=== PATIENT | male | born 1955 | race African-American/Black ===

== ENCOUNTER 2017-05-31 12:36 | Inpatient (IN) | payer MEDICARE, OTHER ==
[~2017-05-31] VITALS: Ht 188 cm; Wt 91.6 kg
--- NOTE | ~2017-05-31 | PN ---
Unit #: [id number] #: [id number] Patient: MARKEL MCCLOUD [id number] [facility] [address] [place] [address] [id number] MR#: [id number] NAME: MARKEL MCCLOUD. ROOM: P253 Age: 61 Sex: M Admission Date: 05/31/2017 : 1955 Attending Physician: Matthew Camacho M.D. Admitting Physician: Matthew Camacho M.D. Primary Care Physician: Inga Doctor Not In System [facility] PROGRESS NOTES DATE 06/05/2017 DISCUSSION Mr. Mccloud is a 61-year-old male who was seen today and chart was reviewed and case was discussed with the staff. He has been anxious, withdrawn and rather seclusive to himself and staff reports that he has been tearful and depressed. Patient was persistent depressive symptoms as well as maintaining anxiety. He has been taking the medications and tolerating them fairly well with no reported side effects. MENTAL STATUS EXAMINATION Middle-aged male who was casually dressed with fair personal hygiene and appears to be in no acute distress or discomfort. He was awake and alert with impaired attention and concentration. His mood was anxious with congruent affect. His speech is slow and restricted in content. He denies any suicidal or homicidal ideations. His insight and judgement remains slightly impaired. TREATMENT PLAN 1. Will continue on his current medications and treatment protocol. Will monitor his response to medications and make further adjustments as needed. 2. Will continue to follow up. Dictated by... Kathie Alejo/annalise TD: 06/05/2017 16:32 JOB #: [id number] Unit #: [id number] #: [id number] Patient: AMRKEL MCCLOUD [facility] PROGRESS NOTES Page 1 of 1 X Matthew Camacho MD PROGRESS NOTE
--- NOTE | ~2017-05-31 | DS ---
Unit #: [id number] #: [id number] Patient: MARKEL MCCLOUD [id number] [facility] [address] [place] [address] [id number] I MR#: [id number] NAME: MARKEL MCCLOUD. ROOM: P253 Age: 61 Sex: M Admission Date: 05/31/2017 : 1955 Discharge Date: 06/10/2017 Attending Physician: Matthew Camacho M.D. Primary Care Physician: Generic Doctor Not In System DISCHARGE SUMMARY IDENTIFICATION DATA Mr. Mccloud is a 61-year-old male who is a resident of [place], [place], and was self-referred to the hospital on voluntary basis. DISCHARGE DIAGNOSES PSYCHIATRIC: Major depressive disorder, recurrent, moderate, without psychotic features. Cocaine dependence, moderate. MEDICAL: Epilepsy. Hypertension. Sleep apnea. Diabetes mellitus. STRESSORS: Mild psychosocial stressors. HISTORY OF PRESENT ILLNESS Same as in initial psychiatric evaluation. PAST PSYCHIATRIC HISTORY Same as in initial psychiatric evaluation. PAST MEDICAL HISTORY Same as in initial psychiatric evaluation. HOSPITAL COURSE The patient was admitted to the adult chemical dependency and psychiatric unit at [facility] kylah Garcia and was oriented to the hospital environment. Routine p.r.n. medications were initiated, and he was started back on his home medications. Medications were adjusted, and he was closely monitored. He was having some repeat episodes of seizures, and Neurontin was maintained, and it was gradually titrated up. Meanwhile, he was polite and pleasant, and cooperative with treatment recommendations and was constantly complaining of persistent depressive symptoms. Medications, therefore, were adjusted quite regularly, and once the patient started showing therapeutic response, he was denying any further suicidal ideations, intent, or plan. As such, it was decided that she will be discharged home. We will continue treatment on outpatient basis. DISCHARGE MEDICATIONS 1. Seroquel 100 mg at bedtime for depression. 2. Effexor XR 75 mg twice a day for depression. 3. BuSpar 10 mg twice a day for anxiety. 4. Neurontin 600 mg 3 times a day for seizure disorder. Unit #: [id number] #: [id number] Patient: MARKEL MCCLOUD CONDITION AT DISCHARGE Stable. PROGNOSIS Fair. Dictated by... Kathie Alejo/tori TD: 06/13/2017 09:41 JOB #: [id number] DISCHARGE SUMMARY Page 1 of 1 X Matthew Camacho MD DISCHARGE SUMMARY
--- NOTE | ~2017-05-31 | DS ---
Unit #: [id number] #: [id number] Patient: MARKEL MCCLOUD [id number] [facility] [address] [place] [address] [id number] I MR#: [id number] NAME: MARKEL MCCLOUD ROOM: P253 Age: 61 Sex: M Admission Date: 05/31/2017 : 1955 Discharge Date: 06/12/2017 Attending Physician: Matthew Camacho M.D. Primary Care Physician: Generic Doctor Not In System DISCHARGE SUMMARY ADDENDUM Mr. Mccloud was scheduled to be discharged on 06/10/2017; however, he stated that he was not ready and was having suicidal thoughts and as such, discharge planning was canceled and he was maintained on a suicide watch until he started feeling better; at which point, it was decided that he will be discharged home and will continue treatment on an outpatient basis. DISCHARGE CONDITION Stable. PROGNOSIS Fair. Dictated by... Kathie Alejo/dante TD: 06/12/2017 16:28 JOB #: [id number] DISCHARGE SUMMARY Page 1 of 1 X Matthew Camacho MD X DISCHARGE SUMMARY
--- NOTE | ~2017-05-31 | PN ---
Unit #: [id number] #: [id number] Patient: MARKEL MCCLOUD [id number] [facility] [address] [place] [address] [id number] I MR#: [id number] NAME: MARKEL MCCLOUD ROOM: P253 Age: 61 Sex: M Admission Date: 05/31/2017 : 1955 Attending Physician: Matthew Camacho M.D. Admitting Physician: Matthew Camacho M.D. Primary Care Physician: Generic Doctor Not In System [facility] PROGRESS NOTES DATE OF SERVICE 06/02/2017 DISCUSSION Mr. Mccloud is a 61-year-old male who was seen today. Chart was reviewed and case was discussed with the staff. He has been anxious, withdrawn, and rather seclusive to himself. His drug screen has come back to be positive for cocaine. Meanwhile, he has been taking the medications and tolerating them fairly well with no reported side effects. MENTAL STATUS EXAMINATION Middle-aged male who is casually dressed with fair personal hygiene, appears to be in no acute distress or discomfort. The patient was awake and alert on interaction with intact orientation. His mood is anxious with congruent affect. He denies any suicidal or homicidal ideations. His insight and judgment remain slightly impaired. TREATMENT PLAN We will continue him on his current medications and treatment protocol. We will monitor his response and make further adjustments as needed. Dictated by... Kathie Alejo/miguelitog TD: 06/04/2017 11:05 JOB #: [id number] [facility] PROGRESS NOTES Page 1 of 1 X Matthew Camacho MD PROGRESS NOTE
--- NOTE | ~2017-05-31 | PN ---
Unit #: [id number] #: [id number] Patient: MARKEL MCCLOUD [id number] [facility] [address] [place] [address] [id number] I MR#: [id number] NAME: MARKEL MCCLOUD ROOM: P253 Age: 61 Sex: M Admission Date: 05/31/2017 : 1955 Attending Physician: Matthew Camacho M.D. Admitting Physician: Matthew Camacho M.D. Primary Care Physician: Generic Doctor Not In System [facility] PROGRESS NOTES DATE OF SERVICE 06/09/2017 DISCUSSION Mr. Mccloud is a 61-year-old white male who was seen today and chart was reviewed and case was discussed with the staff. He has been anxious, withdrawn and rather seclusive to himself. Meanwhile, he has been cooperative with the treatment recommendations. He has been taking the medication and tolerating them fairly well with no reported side effects. MENTAL STATUS EXAM Middle-aged male who was casually dressed with fair personal hygiene, appears to be in no acute distress or discomfort. He was awake and alert with impaired attention and concentration. His mood was anxious with congruent affect. His speech was slow and restricted in content. His insight and judgement remains slightly impaired. TREATMENT PLAN 1. We will continue him on his current medications and treatment protocol. We will monitor his response to the medication and make further adjustments as needed. 2. We will continue to follow up. Dictated by... Kathie Alejo/everardo TD: 06/11/2017 02:39 JOB #: [id number] [facility] PROGRESS NOTES Page 1 of 1 X Matthew Camacho MD PROGRESS NOTE
--- NOTE | ~2017-05-31 | PN ---
Unit #: [id number] #: [id number] Patient: MARKEL MCCLOUD [id number] [facility] [address] [place] [address] [id number] I MR#: [id number] NAME: MARKEL MCCLOUD ROOM: P253 Age: 61 Sex: M Admission Date: 05/31/2017 : 1955 Attending Physician: Matthew Camacho M.D. Admitting Physician: Matthew Camacho M.D. Primary Care Physician: Generic Doctor Not In System [facility] PROGRESS NOTES DATE OF SERVICE: 06/08/2017 SUBJECTIVE Mr. Mccloud is a 61-year-old male, who was seen today and chart was reviewed, and case was discussed with the staff. He has been anxious, withdrawn, and rather seclusive to himself. Meanwhile, he has been cooperative with treatment recommendation and has been taking medications and tolerating them fairly well with no reported side effects. MENTAL STATUS EXAMINATION Middle-aged male, who was casually dressed with fair personal hygiene and appears to be in no acute distress or discomfort. He was awake and alert on interaction with intact orientation. His mood was anxious with a congruent affect. He denies any suicidal or homicidal ideations. His insight and judgment remain slightly impaired. TREATMENT PLAN 1. We will continue him on his current treatment protocol. We will monitor his response to the medications and make further adjustments as needed. 2. We will continue to follow up. Dictated by... Kathie Alejo/dante TD: 06/11/2017 00:54 JOB #: [id number] [facility] PROGRESS NOTES Page 1 of 1 X Matthew Camacho MD X PROGRESS NOTE
--- NOTE | ~2017-05-31 | PN ---
Unit #: [id number] #: [id number] Patient: MARKEL MCCLOUD [id number] [facility] [address] [place] [address] [id number] I MR#: [id number] NAME: MARKEL MCCLOUD. ROOM: P253 Age: 61 Sex: M Admission Date: 05/31/2017 : 1955 Attending Physician: Matthew Camacho M.D. Admitting Physician: Matthew Camacho M.D. Primary Care Physician: Generic Doctor Not In System [facility] PROGRESS NOTES DATE OF SERVICE: 06/03/2017 SUBJECTIVE Mr. Mccloud is a 61-year-old male who was seen today and chart was reviewed, and case was discussed with the staff. The patient has been anxious, withdrawn, details and rather seclusive to himself and reports persistent depressive symptoms and feelings of hopelessness and suicidal ideation. He has been taking medications and tolerating them fairly well with no reported side effects. MENTAL STATUS EXAMINATION Middle-aged male who was casually dressed with fair personal hygiene, appears to be in no acute distress or discomfort. He was awake and alert on interaction with intact orientation. His mood was anxious and depressed with a congruent affect. He reports having suicidal ideation, but denies any homicidal ideation. His insight and judgment remain slightly impaired. TREATMENT PLAN 1. We will continue on his current medications and treatment protocol. We will monitor his response to medications and make further adjustments as needed. 2. We will continue to follow up. Dictated by... Kathie Alejo/dante TD: 06/05/2017 03:16 JOB #: [id number] Unit #: [id number] #: [id number] Patient: MARKEL MCCLOUD [facility] PROGRESS NOTES Page 1 of 1 X Matthew Camacho MD PROGRESS NOTE
--- NOTE | ~2017-05-31 | CO ---
Unit #: [id number] #: [id number] Patient: MARKEL MCCLOUD [id number] [facility] [address] [place] [address] [id number] I MR#: [id number] NAME: MARKEL MCCLOUD. ROOM: P253 Age: 61 Sex: M Admission Date: 05/31/2017 : 1955 Attending Physician: Matthew Camacho M.D. Primary Care Physician: Inga Doctor Not In System Consultation Date: 06/03/2017 CONSULTATION REPORT Ordering provider is Dr. Camacho. REASON FOR CONSULTATION Seizures. SUBJECTIVE The patient reports that he started having seizures approximately 1 year ago. When he first started having them, he was hospitalized at [facility]. He was started on Keppra and Dilantin, but had bad side effects and still had seizures with the medication. He reports that he has had several seizures since being admitted to [facility]. He has no auras, but he gets a bad taste in his mouth prior to seizure occurring. He has not seen a neurologist and has not seen a primary care doctor in several months. However, he does have an appointment on the 06/25/2017. OBJECTIVE His examination is unremarkable. Vital signs are stable. Per nursing, he has had a couple of mild grand mal seizures in which his eyes water and he is not conscious from what they have seen. He has not lost control of bowel or bladder function, and when he awakens, he is not truly postictal. ASSESSMENT Seizures. PLAN We will start the patient on Topamax, however, he does need to see Neurology as soon as possible. 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 It is suspicious. Dictated by... Kenneth Nunez/mathieul TD: 06/04/2017 13:02 JOB #: [id number] Unit #: [id number] #: [id number] Patient: MARKEL MCCLOUD CONSULTATION REPORT Page 1 of 1 X CHRISTINA CHARLTON APRN CONSULTATION REPORT
--- NOTE | ~2017-05-31 | PA ---
Unit #: [id number] #: [id number] Patient: MARKEL MCCLOUD [id number] [facility] [address] [place] [address] [id number] I MR#: [id number] NAME: MARKEL MCCLOUD ROOM: P253 Age: 61 Sex: M Admission Date: 05/31/2017 : 1955 Date of Assessment: 05/31/2017 Attending Physician: Matthew Camacho M.D. Admitting Physician: Matthew Camacho M.D. Primary Care Physician: Generic Doctor Not In System PSYCHIATRIC ASSESSMENT DATE OF SERVICE 05/31/2017. IDENTIFYING DATA Mr. Mccloud is a 61-year-old single male, who is a resident of [place], [place], and was self-referred to the hospital on a voluntary basis. CHIEF COMPLAINT "I actually called the first part of the week, I know that I had depression." HISTORY OF PRESENT ILLNESS Mr. Mccloud is a 61-year-old male with history of mood disorder, who came to the hospital stating that he has been struggling with worsening depression, "but I'm at the point now that I don't want to leave the house that I stay in the bed and just I'm having some thoughts that shouldn't be having and today was especially bad and I don't know if it was the rain, but I decided to call 911 and they brought me in. I have a tendency to worry about some things and causing him to get depressed." The patient does report suicidal ideation with plan to overdose on medication and as such, recommendation for inpatient level of care for safety and stabilization was made. The patient was stepped up to the inpatient unit. SUBSTANCE ABUSE HISTORY The patient reports history of alcohol, cannabis, and cocaine abuse, but reports that he has not used drugs in a long time, though he states that he recently used cocaine 40 dollars worth a day before coming to the hospital. PAST PSYCHIATRIC HISTORY The patient has had history of inpatient psychiatric hospitalization at couple of different facilities and review of the medical records indicate currently he is not active in any treatment program, is not seeing a psychiatrist, and is not taking any psychotropic medications. PAST MEDICAL HISTORY The patient's medical history is significant for hypertension, epilepsy, sleep apnea, diabetes mellitus. ALLERGIES No known medication allergies. Unit #: [id number] #: [id number] Patient: MARKEL MCCLOUD PERSONAL AND SOCIAL HISTORY A 61-year-old male, who reports that he is single, unemployed, and lives alone and has poor social support system. MENTAL STATUS EXAMINATION Middle-aged male who was casually dressed with fair personal hygiene, appears to be in no acute distress or discomfort. He was awake and alert on interaction with intact orientation. His mood was anxious and depressed with a congruent affect. His speech was slow and restricted in content. He reports having suicidal ideations, but denies any homicidal ideations, and also denies any auditory or visual hallucinations. His insight and judgment remain significantly impaired. DIAGNOSTIC IMPRESSION Psychiatric: Major depressive disorder, recurrent, moderate, without psychotic features. Medical: Epilepsy, hypertension, sleep apnea, diabetes mellitus. Stressors: Moderate psychosocial stressors. TREATMENT PLAN 1. The patient has presented with a history of mood disorder, and has been decompensating and will need inpatient hospitalization for safety and stabilization. We will start him back on his home medications. We will adjust the medications and monitor response. 2. Supportive therapy was provided to the patient. 3. Safe, structured, and nourishing environment will be provided. ESTIMATED LENGTH OF STAY 5 to 7 days. ABILITY TO HELP SELF Limited. WILLINGNESS TO HELP SELF The patient appears to be willing to help self. STRENGTHS 1. Communicative. 2. Cooperative. PROBLEMS 1. Chronic dysphoric symptoms. 2. Poor social support system. DISCHARGE CRITERIA This will be contingent upon the patient's ability to show resolution of his depression and anxiety and his ability to stay safe to himself, particularly after discharge from the hospital. Dictated by... Kathie Alejo/dante TD: 06/02/2017 03:24 JOB #: [id number] Unit #: [id number] #: [id number] Patient: MARKEL MCCLOUD PSYCHIATRIC ASSESSMENT Page 1 of 1 X Matthew Camacho MD PSYCHIATRIC ASSESSMENT
--- NOTE | ~2017-05-31 | PN ---
Unit #: [id number] #: [id number] Patient: MARKEL MCCLOUD [id number] [facility] [address] [place] [address] [id number] I MR#: [id number] NAME: MARKEL MCCLOUD. ROOM: P253 Age: 61 Sex: M Admission Date: 05/31/2017 : 1955 Attending Physician: Matthew Camacho M.D. Admitting Physician: Matthew Camacho M.D. Primary Care Physician: Generic Doctor Not In System [facility] PROGRESS NOTES DATE 06/07/2017 DISCUSSION Mr. Mccloud is a 61-year-old male who was seen today and chart was reviewed and case was discussed with the staff. He has been anxious, withdrawn and seclusive to himself. He reports persistent depressive symptoms. Meanwhile, he has been taking the medications and tolerating them fairly well with no reported side effects. MENTAL STATUS EXAMINATION Middle-aged male who was casually dressed with fair personal hygiene and appears to be in no acute distress or discomfort. He was awake and alert on interaction with intact orientation. His mood was anxious with congruent affect. His speech is slow and goal-directed. He denies any suicidal or homicidal ideations. His insight and judgement remains slightly impaired. TREATMENT PLAN 1. Will continue on his current medications and treatment protocol. Will monitor response to the medications and make further adjustments as needed. 2. Will continue to follow up. Dictated by... Kathie Alejo/annalise TD: 06/07/2017 20:45 JOB #: [id number] Unit #: [id number] #: [id number] Patient: MARKEL MCCLOUD [facility] PROGRESS NOTES Page 1 of 1 X Matthew Camacho MD PROGRESS NOTE
--- NOTE | ~2017-05-31 | PN ---
Unit #: [id number] #: [id number] Patient: MARKEL MCCLOUD [id number] [facility] [address] [place] [address] [id number] I MR#: [id number] NAME: MARKEL MCCLOUD. ROOM: P253 Age: 61 Sex: M Admission Date: 05/31/2017 : 1955 Attending Physician: Matthew Camacho M.D. Admitting Physician: Matthew Camacho M.D. Primary Care Physician: Generic Doctor Not In System [facility] PROGRESS NOTES DATE OF SERVICE 06/06/2017 DISCUSSION Mr. Mccloud is a 61-year-old male who was seen today. Chart was reviewed and case was discussed with the staff. He has been anxious, withdrawn, and rather seclusive to himself. Meanwhile, he has been cooperative with the treatment recommendations and has been taking the medications and tolerating them fairly well with no reported side effects. MENTAL STATUS EXAMINATION Middle-aged male who is casually dressed with fair personal hygiene, appears to be in no acute distress or discomfort. The patient was awake and alert with intact orientation. His mood is anxious with congruent affect. His speech is slow and goal-directed. He denies any suicidal or homicidal ideations. His insight and judgment remain slightly impaired. TREATMENT PLAN 1. We will continue him on his current medications and treatment protocol. We will monitor his response to the medications and make further adjustments as needed. 2. We will continue to follow up. Dictated by... Kathie Alejo/tori TD: 06/06/2017 14:53 JOB #: [id number] Unit #: [id number] #: [id number] Patient: MARKEL MCCLOUD [facility] PROGRESS NOT[facility] Page 1 of 1 X Matthew Camacho MD PROGRESS NOTE
--- NOTE | ~2017-05-31 | PN ---
Unit #: [id number] #: [id number] Patient: MARKEL MCCLOUD [id number] [facility] [address] [place] [address] [id number] I MR#: [id number] NAME: MARKEL MCCLOUD. ROOM: P253 Age: 61 Sex: M Admission Date: 05/31/2017 : 1955 Attending Physician: Matthew Camacho M.D. Admitting Physician: Matthew Camacho M.D. Primary Care Physician: Generic Doctor Not In System [facility] PROGRESS NOTES DATE 06/04/2017 DISCUSSION Mr. Mccloud is a 61-year-old male who was seen today and chart was reviewed and case was discussed with the staff. He has been anxious, withdrawn and rather seclusive to himself. Meanwhile, he reports persistent depressive symptoms with feelings of hopelessness and helplessness. He has been taking the medications and tolerating them fairly well. MENTAL STATUS EXAMINATION Middle-aged male who was casually dressed with fair personal hygiene and appears to be in no acute distress or discomfort. He was awake and alert with intact orientation. His mood was anxious with congruent affect. He reports having suicidal ideation but denies any homicidal ideations. His insight and judgement remains slightly impaired. TREATMENT PLAN 1. Will continue on his current medications and treatment protocol. Will monitor his response to medications and make further adjustments as needed. 2. Will continue to follow up. Dictated by... Kathie Alejo/annalise TD: 06/04/2017 22:30 JOB #: [id number] Unit #: [id number] #: [id number] Patient: MARKEL MCCLOUD [facility] PROGRESS NOT[facility] Page 1 of 1 X Matthew Camacho MD PROGRESS NOTE
--- NOTE | ~2017-05-31 | PN ---
Unit #: [id number] #: [id number] Patient: MARKEL MCCLOUD [id number] [facility] [address] [place] [address] [id number] MR#: [id number] NAME: MARKEL MCCLOUD ROOM: P253 Age: 61 Sex: M Admission Date: 05/31/2017 : 1955 Attending Physician: Matthew Camacho M.D. Admitting Physician: Matthew Camacho M.D. Primary Care Physician: Inga Doctor Not In System [facility] PROGRESS NOTES DATE OF SERVICE 06/11/2017 DISCUSSION Mr. Mccloud is a 61-year-old male who was seen today. Chart was reviewed and case was discussed with the staff. He has been anxious, withdrawn, and was scheduled to be discharged yesterday, but then he stated that he is having suicidal thoughts and has a plan to overdose on pills, and as such discharge planning was canceled, and he was placed on suicide watch, (1) __ he does not like the suicide watch and has been exhibiting very manipulative and gamey behavior where he does not want to leave the hospital stating that he is suicidal, but then he does not want to be on suicide watch stating that he is fine in her, but that he will be suicidal when he gets out of the hospital, and as such appears to be exhibiting symptoms aligning for malingering behavior. However, he has been taking the medications and tolerating them fairly well. MENTAL STATUS EXAMINATION Middle-aged male who is casually dressed with fair personal hygiene, appears to be in no acute distress or discomfort. He was awake and alert on interaction with intact orientation. His mood is anxious with congruent affect. Speech is slow and goal-directed. He reports having suicidal ideation but denies any homicidal ideations. His insight and judgment remain slightly impaired. TREATMENT PLAN 1. We will continue him on his current medications and treatment protocol. We will monitor his response to the medications and make further adjustments as needed. 2. We will continue to follow up. Dictated by... Matthew Camacho M.D. IAA/bzg TD: 06/12/2017 08:20 JOB #: [id number] Unit #: [id number] #: [id number] Patient: AMEMARKEL PROGRESS NOTES Page 1 of 1 X Matthew Camacho MD PROGRESS NOTE
--- NOTE | ~2017-05-31 | HP ---
Unit #: [id number] #: [id number] Patient: MARKEL MCCLOUD [id number] [place] [address] [id number] MR#: [id number] NAME: MARKEL MCCLOUD. ROOM: P253 Age: 61 Sex: M Admission Date: 05/31/2017 : 1955 Attending Physician: Matthew Camacho M.D. Admitting Physician: Matthew Camacho M.D. Primary Care Physician: Generic Doctor Not In System HISTORY AND PHYSICAL HISTORY OF PRESENT ILLNESS The patient is a 61-year-old male admitted to [address] [place] [address] on 05/31/2017 for suicidal ideations. PAST MEDICAL HISTORY 1. Diabetes. 2. Hypertension. 3. Epilepsy. 4. Sleep apnea. PAST SURGICAL HISTORY Anal fistula repair. SOCIAL HISTORY He is disabled. He was alone. He smokes half a pack of cigarettes daily and uses crack cocaine occasionally. FAMILY MEDICAL HISTORY Noncontributory. ALLERGIES No known drug allergies. CURRENT MEDICATIONS 1. Metoprolol. 2. Janumet. 3. Gabapentin. 4. Amlodipine. 5. Feosol. 6. Afrin. REVIEW OF SYSTEMS CONSTITUTIONAL: No fever or chills. HEENT: Denies any sore throat, ear pain or runny nose. CARDIOVASCULAR: Denies chest pain, irregular heart rhythm or palpitations. CHEST: Denies shortness of breath or cough. No hemoptysis. GASTROINTESTINAL: Denies nausea, vomiting, diarrhea or chronic constipation. ENDOCRINE: Denies history of increased thirst or urination. No recent significant weight loss or gain. GENITOURINARY: Denies dysuria, frequency, or hematuria. SKIN: Denies any rashes. HEMATOLOGIC: Denies history of increased bleeding or bruising. Unit #: [id number] #: [id number] Patient: MARKEL MCCLOUD MUSCULOSKELETAL: Denies any hot, swollen joints. No generalized muscle pain. NEUROLOGIC: Denies problems with vision or speech. No frequent, severe headaches. No numbness, tingling or weakness in any extremities. Denies loss of bladder or bowel control. PHYSICAL EXAMINATION GENERAL: He is awake, alert, and oriented in no acute distress. VITAL SIGNS: Temperature 98.3, heart rate 80, respirations 14, blood pressure 127/80. HEIGHT: 6 feet 2. WEIGHT: 202 pounds. SKIN: Warm and dry without rash or lesion. HEENT: Normocephalic. TMs not viewed. Oral and nasal passages clear. Conjunctivae clear. PERRLA. EOMs intact. NECK: Supple without lymphadenopathy or thyromegaly. HEART: Regular rate and rhythm without murmur. LUNGS: Clear. ABDOMEN: Soft, nontender. : Not done. EXTREMITIES: No evidence of cyanosis, clubbing or edema. Moves all without focal deficit. NEUROLOGICAL: Grossly within normal limits. Cranial Nerves: II: Visual burk are intact. III, IV AND : Extraocular movements are intact. Pupils are equal, round and reactive to light. V: Facial sensation is grossly normal. VII: Facial movements and expression are normal. VIII: Auditory acuity grossly intact. IX, X: Uvula is midline. Phonation is normal. XI: Patient shrugs shoulders and turns head normally. XII: Tongue protrudes in the midline. Sensory and Motor Function: Sensory and motor sensation is grossly normal. Motor: moves all extremities well. IMPRESSION 1. Psychiatric admission. 2. Diabetes. 3. Hypertension. 4. Epilepsy. 5. Sleep apnea. RECOMMENDATIONS PSYCHIATRIC: Per psychiatrist. MEDICAL: No contraindication to participate in this facility activities. MEDICAL PROGNOSIS Fair. MEDICAL CONDITION Stable. Dictated by... Kenneth Nunez/tori Unit #: [id number] #: [id number] Patient: MARKEL MCCLOUD TD: 06/01/2017 15:19 JOB #: [id number] HISTORY AND PHYSICAL Page 1 of 1 X CHRISTINA CHARLTON APRN HISTORY AND PHYSICAL
--- NOTE | ~2017-05-31 | PN ---
Unit #: [id number] #: [id number] Patient: MARKEL MCCLOUD [id number] [facility] [address] [place] [address] [id number] MR#: [id number] NAME: MARKEL MCCLOUD ROOM: P253 Age: 61 Sex: M Admission Date: 05/31/2017 : 1955 Attending Physician: Matthew Camacho M.D. Admitting Physician: Matthew Camacho M.D. Primary Care Physician: Inga Doctor Not In System [facility] PROGRESS NOTES DATE OF SERVICE 06/01/2017 DISCUSSION Ms. Mccloud is a 61-year-old male who was seen today. Chart was reviewed and case was discussed with the staff. He has been anxious, withdrawn, depressed, and has been having repeat seizures. Staff informed me that he has had two brief seizures while in the unit and while I was talking to him. He stated that he continues to have a taste in his mouth, and he feels another seizure coming on, and then as he was with us in a wheelchair, he started having seizure activity which was brief tonic-clonic activity more towards his right side with his hand and arm shaking, and his head tilting back, and it lasted only for around 10 seconds and then he was able to come out of it, and though his eyes were teary, he was not seen to have any postictal confusion. He reported that he was on several different seizure medications, but that he does not like any one of them, and that he has tried Dilantin, Depakote, and Keppra, and that he has not had good tolerability (1) __ with most of them, and that he is currently on Neurontin, but that he would like his Neurontin to be increased. MENTAL STATUS EXAMINATION Middle-aged male who is casually dressed with fair personal hygiene, appears to be in no acute distress or discomfort. The patient was awake and alert on interaction with intact orientation. His mood is anxious and depressed with congruent affect. He reports having suicidal ideations but denies any homicidal ideations. His insight and judgment remain slightly impaired. TREATMENT PLAN 1. We will adjust his psychotropic medications and increase the Neurontin to 600 mg 3 times a day, and we will also add Effexor as an antidepressant. 2. We will continue to follow up. Dictated by... Kathie Alejo/tori TD: 06/01/2017 18:27 Unit #: [id number] #: [id number] Patient: MARKEL MCCLOUD JOB #: [id number] [facility] PROGRESS NOTES Page 1 of 1 X Matthew Camacho MD X PROGRESS NOTE
--- NOTE | ~2017-05-31 | A ---
[facility] Nutrition Therapy DATE: 06/07/17 Patient: MARKEL MCCLOUD Physician: AFAIRF Address: [address] [place] [address] Room/Bed: [id number], Zip: [place] [address] Admit Date: 05/31/17 Date of : [birth year] Height: 6 2 Weight: [phone] NUTRITIONAL ASSESSMENT: REASON: PT SEEN FOR DIETARY CONSULT RELATED TO MULTIPLE REQUESTS FOR DIFFERENT FOOD. ADMITTED FOR DEPRESSION, SUBSTANCE ABUSE, ANXIETY PMH: BIPOLAR, DM, HTN, EPILEPSY, SLEEP APNEA, HX OF COLON CANCER Anthropometrics: PT IS 61 YO MALE. HT 6'2", WT 202LBS, BMI 25. IBW 180, 112%IBW Labs: NO SIGNIFICANT LABS Meds: FERROUS GLUCONATE Assessment: PT SEEN FOR DIETARY CONSULT. UPON CHART REVIEW, IT WAS DISCOVERED THAT PT HAS HAD 50LBS WT LOSS IN 6MONTHS. PT REPORTED THAT HIS WEIGHT LOSS WAS DUE TO HIM RELAPSING ON CRACK. PT SMOKES 1/2 PPD AND HAS USED CRACK 3X IN PAST 6 MONTHS. PT STATED HE WANTS TO REGAIN THE WEIGHT HE HAS LOST. PT IS ABLE TO CONTROL HIS BLOOD SUGARS AND DOES WELL AT HOME. PT REPORTS GOOD APPETITE BUT DISLIKES EGGS AND OATMEAL, WHICH HE SAYS HE GETS NEARLY EVERY BREAKFAST. PT IS ON CCD WITH EXTRA ENTREES AT L&D. Dx: UNINTENTIONAL WEIGHT LOSS R/T DRUG USE, CURRENT CONDITION AEB 50LB WT LOSS IN 6 MONTHS, USING CRACK FOR PAST 6 MONTHS. Intervention: SUPP, CCD WITH EXTRA ENTREES, PSYCH, MEDS PER MD Monitoring, Evaluation and Goals: 1. ADEQUATE PO INTAKE OF >50% OF MEALS 2. MAINTAIN HEALTHY WEIGHT MONITOR: BLOOD SUGAR, PO/FLUID INTAKE Recommendations: 1. GIVE STRAWBERRY OR VANILLA GLUCERNA ONCE PER DAY IF PO INTAKE IS <50% OF MEAL 2. RD WILL UPDATE PATIENT PREFERENCES TO REMOVE BREAKFAST EGGS AND OATMEAL. 3. CONTINUE CURRENT CC DIET WITH LARGE ENTREES AT L&D 4. OBTAIN BLOOD SUGAR LEVELS ROUTINELY RD WILL FOLLOW UP PER PROTOCOL AND PRN. PT HAS MILD NUTRITION RISK Respectfully, [facility] Nutrition Therapy DATE: 06/07/17 Patient: MARKEL MCCLOUD Physician: AFAIRF Address: [address] [place] [address] Room/Bed: P253-1 [facility], Zip: [place] [address] Admit Date: 05/31/17 Date of : [birth year] Height: 6 2 Weight: [phone], LD [facility] Nutrition[facility] Services [facility] cc: client file
[2017-06-01 12:27] LABS: URINE APPEARANCE TURBID; URINE BILIRUBIN NEG (NEG); URINE BLOOD NEG (NEG); URINE COLOR YELLOW; URINE GLUCOSE NEG (NEG); URINE KETONE TRACE (NEG); URINE LEUKOCYTE ESTERASE TRACE (NEG); URINE NITRATE NEG (NEG); URINE PH 5.5 (5-8); URINE PROTEIN NEG (NEG); URINE SPECIFIC GRAVITY 1.026 (1.003-1.035)
[2017-06-01 12:33] LABS: U HYALINE CASTS AUWI 0-2 /[LPF]; URBCS1 AUWI 0-2 /[HPF] (0-2); URINE BACTERIA AUWI NEG (NEGATIVE); URINE SQUAMOUS EPITHELIAL CELL NONE SEEN /[HPF]; UWBCS1 AUWI 0-2 (0-5)
[2017-06-01 12:37] LABS: BASOPHIL% 0.8 % (0-2.5); EOSINOPHIL# 0.1 X10e3 (0-0.7); EOSINOPHIL% 1.4 % (0.0-7.0); HEMATOCRIT 39.9 % (38.0-50.0); HEMOGLOBIN 13.4 gm/dL (13.0-16.0); LYMPHOCYTE# 1.8 X10e3 (1.0-3.5); LYMPHOCYTE% 33.6 % (17.0-45.0); MEAN CELL VOLUME 88.4 FL (83-96); MEAN CORPUSCULAR HEMOGLOBIN 29.8 PG (28-34); MEAN CORPUSCULAR HGB CONC 33.7 g/dL (30-36); MEAN PLATELET VOLUME 7.8 FL (6.5-11.5); MONOCYTE# 0.4 X10e3 (0-1.0); MONOCYTE% 7.7 % (3.0-12.0); NEUTROPHIL% 56.5 % (40-75); PLATELET COUNT 246 X10e3 (140-420); RED BLOOD COUNT 4.52 X10e (3.90-5.60); WHITE BLOOD COUNT 5.3 X10e3 (4.0-10.5)
[2017-06-01 12:46] LABS: DIFF IND NO
[2017-06-01 12:54] LABS: BILIRUBIN,TOTAL 1.4 mg/dL (0.2-2.0); BUN/CREATININE RATIO 11.66; CALCIUM SERUM 9.1 mg/dL (8.4-10.2); CREATININE SERUM 1.2 mg/dL (0.6-1.4); GLOM FILT RATE Estimated 76.3 mL/min (>60); POTASSIUM 3.6 mmol/L (3.5-5.1); PROTEIN TOTAL SERUM 6.9 g/dL (6.0-8.3)
[2017-06-01 12:59] LABS: AMPHETAMINE NEG (NEG); BARBITURATES NEG (NEG); BENZODIAZEPINES NEG (NEG); COCAINE POS (NEG); MARIJUANA NEG (NEG); OPIATES NEG (NEG); TRICYCLIC ANTIDEPRESSANTS NEG (NEG); U METHADONE NEG (NEG)
== END 2017-06-12 11:15 | disposition home or self-care (01) | DRG 885 ==
LOC: P2L 16:29 → EDSEX 16:29 → P2L 06-01 10:47
PROVIDERS: Psychiatry & Neurology Psychiatry
DX: F33.1 Major depressive disorder, recurrent, moderate (principal); F14.20 Cocaine dependence, uncomplicated; I10 Essential (primary) hypertension; E11.9 Type 2 diabetes mellitus without complications; G40.909 Epilepsy, unspecified, not intractable, without status epilepticus; G47.30 Sleep apnea, unspecified; F17.210 Nicotine dependence, cigarettes, uncomplicated; Z79.84 Long term (current) use of oral hypoglycemic drugs
CPT/HCPCS: 80053; 80307; 81003; 82947; 85025; J2060